=== PATIENT | female | born 1980 | race African-American/Black ===

== ENCOUNTER 2017-05-14 12:39 | Emergency (ER) | payer MEDICAID ==
[~2017-05-14] VITALS: Ht 167.6 cm; Wt 159.0 kg
[~2017-05-14 12:39] MED LIST: AMLO-511 PO; FERR-89 PO; HYDR25TA PO; VITAD1000 PO
[2017-05-14] MEDS ORDERED: ACETAMINOPHEN 325 MG TABLET PO ONE (14:45)
[2017-05-14] MEDS ORDERED: GuaiFENesin/D-METHORPHAN [SUGAR-FREE] 200-20MG/10 ML SYRUP UDCUP PO ONE (14:45)
[2017-05-14] MEDS ORDERED: OSELTAMIVIR PHOSPHATE 75 MG CAPSULE PO ONE (14:45)
[2017-05-14 16:05] LABS: INFLUENZA TYPE A POSITIVE FOR TYPE A (NEGATIVE); INFLUENZA TYPE B NEGATIVE FOR TYPE B (NEGATIVE)
[2017-05-14 16:23] VITALS: BP 134/78
== END 2017-05-14 16:27 | disposition home or self-care (01) ==
LOC: EMS 12:39
DX: J11.1 Influenza due to unidentified influenza virus with other respiratory manifestations (principal); J02.9 Acute pharyngitis, unspecified; R19.7 Diarrhea, unspecified; M79.1 Myalgia; R51 Headache; I10 Essential (primary) hypertension
CPT/HCPCS: 87804; 99284